=== PATIENT | male | born 2000 | race Caucasian/White ===

== ENCOUNTER 2018-12-19 02:09 | Emergency (ER) | payer SELFPAY ==
[~2018-12-19] VITALS: Ht 167.7 cm; Wt 55.0 kg
[~2018-12-19 02:09] MED LIST: DOXY100C2 PO; PRED20TA PO
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
[2018-12-19] MEDS ORDERED: ACETAMINOPHEN 500 MG TAB (TYLENOL) PO ONE (04:45)
[2018-12-19] MEDS ORDERED: ACHD5005 PO (05:21)
[2018-12-19] MEDS ORDERED: HYDROcodone/APAP 5 MG/325 MG (LORTAB) TAB ONE (05:29)
[2018-12-19] MEDS ORDERED: HYDROcodone/APAP 5 MG/325 MG (LORTAB) TAB PO ONE (05:30)
[2018-12-19 05:35] VITALS: BP 101/86
--- NOTE | 2018-12-19 07:09 | Diagnostic Imaging Report ---
INDICATION: Injury. FINDINGS: There is extra-articular angulated boxer's type fracture distal neck fifth metacarpal. Benign sclerotic foci in the proximal middle phalanges of the second finger noted. No other injury. IMPRESSION: Mild angulation of an extra-articular fifth metacarpal boxer's fracture. No other significant finding. Dictated by: Dictated on workstation # [id number]
== END 2018-12-19 05:36 | disposition home or self-care (01) ==
LOC: EDUNIT# 02:09 → ER 02:10
DX: S62.336A Displaced fracture of neck of fifth metacarpal bone, right hand, initial encounter for closed fracture (principal); Z79.52 Long term (current) use of systemic steroids; W22.8XXA Striking against or struck by other objects, initial encounter
CPT/HCPCS: 73130